=== PATIENT | female | born 1940 | race Caucasian/White ===

== ENCOUNTER 2018-11-08 09:16 | Emergency (ER) | payer MEDICARE ==
[2018-11-08 10:08] VITALS: BP 125/68
--- NOTE | 2018-11-08 10:43 | UC ---
Lower Extremity/Ankle HPI - HPI Summary HPI Summary: Pt is accompanied by cousin. Pt has recently been hospitalized and in rehab facility. Pt was hospitalized with collapsed lung and known MRSA infection. Pt now c/o of gradual worsening of bilateral lower leg swelling that began in feet and now is "traveling up legs" to below knee. Denies chest pain or SOB. - History of Current Complaint Chief Complaint: UCLowerExtremity Stated Complaint: LEG SWELLING Time Seen by Provider: 11/08/18 10:08 Hx Obtained From: Patient ?: No Onset/Duration: Gradual Onset, Lasting Days, Still Present, Worse Since - onset Severity Initially: Mild Severity Currently: Mild Pain Intensity: 5 Aggravating Factor(s): Standing, Ambulation Alleviating Factor(s): Elevation Able to Bear Weight: Yes - Risk Factors Gout Risk Factors: Age Over 40 DVT Risk Factors: Recent Period Of Bedrest Septic Arthritis Risk Factor: Extremes of Age - Allergies/Home Medications Allergies/Adverse Reactions: Allergies Allergy/AdvReac Type Severity Reaction Status Date / Time amoxicillin [From Augmentin] Allergy Nausea Verified 11/08/18 10:11 clavulanic acid Allergy Nausea Verified 11/08/18 10:11 [From Augmentin] escitalopram [From Lexapro] Allergy Shakes Verified 11/08/18 10:11 metoclopramide [From Reglan] Allergy Shakes Verified 11/08/18 10:11 paroxetine Allergy Shakes Verified 11/08/18 10:11 primidone Allergy Rash Verified 11/08/18 10:11 raloxifene [From Evista] Allergy Heartburn Verified 11/08/18 10:11 sulfamethoxazole Allergy Heartburn Verified 11/08/18 10:11 environmental Allergy Congestion Uncoded 11/08/18 10:11 Home Medications: Home Medications Amlodipine Besylate [Norvasc] 10 mg PO DAILY 11/08/18 [History Confirmed ] Potassium Chlor TAB* [Klor Con ER TAB*] 40 meq PO BID 11/08/18 [History Confirmed 11/08/18] PMH/Surg Hx/FS Hx/Imm Hx Previously Healthy: Yes - Surgical History Surgical History: Yes Surgery Procedure, Year, and Place: T&A, 1945. Sinus, 2001. Sebaceous Cyst, 2010. Gall Bladder, 2011. intubation 2018 - chest tube placed - Family History Known Family History: Positive: Cardiac Disease - Social History Occupation: Retired Lives: Alone Alcohol Use: None Substance Use Type: None Smoking Status (MU): Never Smoked Tobacco Have You Smoked in the Last Year: No - Immunization History Most Recent Influenza Vaccination: Fall 2014 Most Recent Pneumonia Vaccination: Fall 2014 Vaccination Up to Date: Yes Review of Systems All Other Systems Reviewed And Are Negative: Yes Constitutional: Positive: Negative Skin: Positive: Negative Eyes: Positive: Negative ENT: Positive: Negative Respiratory: Positive: Negative Cardiovascular: Positive: Negative Gastrointestinal: Positive: Negative Genitourinary: Positive: Negative Motor: Positive: Negative Neurovascular: Positive: Negative Musculoskeletal: Positive: Edema Neurological: Positive: Negative Psychological: Positive: Negative Is Patient Immunocompromised?: No Physical Exam Triage Information Reviewed: Yes Appearance: Well-Appearing Vital Signs: Initial Vital Signs Temp 97.5 F 11/08/18 10:00 Pulse 94 11/08/18 10:00 Resp 18 11/08/18 10:00 BP 125/68 11/08/18 10:00 Pulse Ox 98 11/08/18 10:00 Vital Signs Reviewed: Yes Eye Exam: Normal ENT Exam: Normal Dental Exam: Normal Neck exam: Normal Respiratory Exam: Normal Cardiovascular Exam: Normal Cardiovascular: Positive: RRR, No Murmur Musculoskeletal Exam: Other Musculoskeletal: Positive: Edema @ - bilateral lower extremities, + 1/2 or +1 Neurological Exam: Normal Psychological Exam: Normal Skin Exam: Normal Lower Extremity Course/Dx - Course Course Of Treatment: I discussed with the pt the need f/u with PCP, elevate her bilateral extremities , limit salt in dietary intake and to wear compression stockings as tolerated. - Differential Dx/Diagnosis Provider Diagnosis: Lower extremity edema Discharge - Sign-Out/Discharge Documenting (check all that apply): Patient Departure All imaging exams completed and their final reports reviewed: No Studies - Discharge Plan Condition: Stable Disposition: HOME Patient Education Materials: Leg Edema (ED) Referrals: Melyssa Duran NP [Primary Care Provider] - 11/18/18 (Please keep your appointment on 11/18/18) - Billing Disposition and Condition Condition: STABLE Disposition: Home
== END 2018-11-08 10:54 | disposition home or self-care (01) ==
LOC: UCCORT 09:16
DX: R60.0 Localized edema (principal); Z88.2 Allergy status to sulfonamides; Z88.0 Allergy status to penicillin; Z88.8 Allergy status to other drugs, medicaments and biological substances; Z91.09 Other allergy status, other than to drugs and biological substances
CPT/HCPCS: 99211; G0463

== ENCOUNTER 2019-04-07 13:25 | Emergency (ER) | payer MEDICARE ==
[2019-04-07 13:57] VITALS: BP 135/85
[2019-04-07] MEDS ORDERED: predniSONE TAB* 20 MG PO ONE (14:10)
--- NOTE | 2019-04-07 14:10 | UC ---
General HPI - HPI Summary HPI Summary: cough with congestion and some sob x 1 week. hx asthma. had pneumonia once that felt similar. no cp or f/c's. - History of Current Complaint Chief Complaint: UCGeneralIllness Stated Complaint: CHEST CONGESTION Time Seen by Provider: 04/07/19 14:04 Hx Obtained From: Patient Onset/Duration: Gradual Onset Timing: Constant Pain Intensity: 0 - Allergy/Home Medications Allergies/Adverse Reactions: Allergies Allergy/AdvReac Type Severity Reaction Status Date / Time amoxicillin [From Augmentin] Allergy Nausea Verified 04/07/19 13:57 clavulanic acid Allergy Nausea Verified 04/07/19 13:57 [From Augmentin] escitalopram [From Lexapro] Allergy Shakes Verified 04/07/19 13:57 metoclopramide [From Reglan] Allergy Shakes Verified 04/07/19 13:57 paroxetine Allergy Shakes Verified 04/07/19 13:57 primidone Allergy Rash Verified 04/07/19 13:57 raloxifene [From Evista] Allergy Heartburn Verified 04/07/19 13:57 sulfamethoxazole Allergy Heartburn Verified 04/07/19 13:57 environmental Allergy Congestion Uncoded 04/07/19 13:57 Home Medications: Home Medications Aspirin EC TAB* [Ecotrin EC Low Dose 81 MG*] 81 mg PO EVERY OTHER DAY 04/07/19 [ History Confirmed 04/07/19] Biotin 5,000 mcg SL BID 04/07/19 [History Confirmed 04/07/19] Budesonide/Formote 80/4.5(NF) [Symbicort 80/4.5 (NF)] 2 puff INH BID 04/07/19 [ History Confirmed 04/07/19] Calcium Carb/Magnesium Hydrox [Rolaids 550-110 mg] 1 chw PO SEE INSTRUCTIONS PRN 04/07/19 [History Confirmed 04/07/19] Fexofenadine (NF) [Kavita (NF)] 60 mg PO BID PRN 04/07/19 [History Confirmed ] Furosemide TAB* [Lasix TAB*] 20 mg PO BID 04/07/19 [History Confirmed 04/07/19] Lovastatin (NF) [Mevacor (NF)] 40 mg PO BEDTIME 04/07/19 [History Confirmed ] Polyvinyl Alcohol/Povidone/Pf [Refresh Classic Eye Drops] 1 drop BOTH EYES BID PRN 04/07/19 [History Confirmed 04/07/19] Ranitidine TAB (NF) [Zantac TAB (NF)] 150 mg PO BID PRN 04/07/19 [History Confirmed 04/07/19] busPIRone TAB* [Buspar TAB*] 10 mg PO TID PRN 04/07/19 [History Confirmed ] celeCOXIB CAP* [CeleBREX CAP*] 200 mg PO DAILY 04/07/19 [History Confirmed 04/07] PMH/Surg Hx/FS Hx/Imm Hx - Additional Past Medical History Additional PMH: tremor RLS Endocrine History: Dyslipidemia Cardiovascular History: Hypertension Respiratory History: Asthma GI/ History: Gastroesophageal Reflux - Surgical History Surgical History: Yes Surgery Procedure, Year, and Place: T&A, 194. Sinus, 2001. Sebaceous Cyst, 2010. Gall Bladder, 2011. intubation 2017 - chest tube placed - Family History Known Family History: Positive: Cardiac Disease - Social History Alcohol Use: None Substance Use Type: None Smoking Status (MU): Never Smoked Tobacco Have You Smoked in the Last Year: No - Immunization History Most Recent Influenza Vaccination: Fall 2014 Most Recent Pneumonia Vaccination: Fall 2014 Vaccination Up to Date: Yes Review of Systems All Other Systems Reviewed And Are Negative: No Constitutional: Negative: Fever, Chills ENT: Negative: Sore Throat, Ear Ache, Sinus Congestion Respiratory: Positive: Shortness Of Breath, Cough Cardiovascular: Negative: Palpitations, Chest Pain Gastrointestinal: Negative: Vomiting, Diarrhea, Nausea Physical Exam Triage Information Reviewed: Yes Appearance: Well-Appearing Vital Signs: Initial Vital Signs Temp 98.6 F 04/07/19 13:51 Pulse 94 04/07/19 13:51 Resp 20 04/07/19 13:51 BP 135/85 04/07/19 13:51 Pulse Ox 98 04/07/19 13:51 Vital Signs Reviewed: Yes Eyes: Positive: Conjunctiva Clear ENT: Positive: Normal ENT inspection Neck: Positive: Supple Respiratory: Positive: No respiratory distress, Decreased breath sounds, Crackles - bll'S, Expiration - BLL's Cardiovascular: Positive: RRR, No Murmur Abdomen Description: Positive: Nontender Musculoskeletal: Positive: ROM Intact Neurological: Positive: Alert Psychological: Positive: Age Appropriate Behavior Skin Exam: Normal Diagnostics - Radiology No standard instances Radiology Interpretation Completed By: Radiologist - IMPRESSION: HYPERINFLATION. NO ACTIVE CARDIOPULMONARY DISEASE. Re-Evaluation - Re-Evaluation First Eval Re-Evaluation Time: 14:51 Change: Improved - PT NOTES BREATHING EASIER AND WHEEZING RESOLVED; HOWEVER, SHE STILL HAS BIBASILAR CRACKLES. Course/Dx - Differential Dx - Multi-Symptom Differential Diagnoses: Other - CXR=hyperinflation. given hx and PE with chronic lung disease, will tx for presumptive bacterial infection. - Diagnoses Provider Diagnosis: Asthma Discharge ED - Sign-Out/Discharge Documenting (check all that apply): Patient Departure All imaging exams completed and their final reports reviewed: Yes - Discharge Plan Condition: Stable Disposition: HOME Prescriptions: DOXYcycline CAP(*) [DOXYcycline 100MG CAP(*)] 100 mg PO BID 10 Days #20 cap predniSONE TAB* [Deltasone 20 MG TAB*] 40 mg PO DAILY 4 Days #8 tab Patient Education Materials: Asthma (DC) Referrals: Melyssa Duran NP [Primary Care Provider] - 5 Days Additional Instructions: USE RESCUE INHALER 2 PUFFS EVERY 6 HOURS - Billing Disposition and Condition Condition: STABLE Disposition: Home - Attestation Statements Provider Attestation: Per institutional requirements, I have reviewed the chart, however, I was not consulted specifically or made aware of this patient by the midlevel provider. I did not personally evaluate, interact with , or disposition this patient.
[2019-04-07] MEDS ORDERED: Albuterol 2.5 MG/3 ML NEB.SOL* (0.083%) INH ONE (14:11)
== END 2019-04-07 15:08 | disposition home or self-care (01) ==
LOC: UCCORT 13:25
DX: J45.909 Unspecified asthma, uncomplicated (principal); I10 Essential (primary) hypertension; K21.9 Gastro-esophageal reflux disease without esophagitis; E78.5 Hyperlipidemia, unspecified
CPT/HCPCS: 71046; 99213; G0463; J7512